=== PATIENT | male | born 1970 | race Caucasian/White ===

== ENCOUNTER 2022-08-20 07:51 | Day surgery (SDC) | payer BC, OTHER ==
[2022-08-13 10:39] VITALS: BMI 36.1
[2022-08-20] MEDS ORDERED: EPINEPHrine 1:1,000 1,000 MCG/ML ML ONE (08:37)
[2022-08-20] MEDS ORDERED: BUPIVACAINE HCL/PF 2.5 MG/ML - 30 ML VIAL IJ ONE (08:37)
[2022-08-20] MEDS ORDERED: ceFAZolin SODIUM 1 GM VIAL ONE (09:32)
[2022-08-20] MEDS ORDERED: PROPOFOL 20 ML ONE ×2 (09:34)
[2022-08-20] MEDS ORDERED: ONDANSETRON 4 MG/2 ML VIAL IVPUSH PRN (10:33)
[2022-08-20] MEDS ORDERED: oxyCODONE HCL 5 MG TABLET PO PRN (10:33)
[2022-08-20] MEDS ORDERED: PROMETHAZINE HCL 25 MG/1 ML VIAL IVPB PRN (10:33)
[2022-08-20 12:09] VITALS: RESP 20; TEMP 97.9
[2022-08-20 12:37] VITALS: BP 104/67; PULSE 72
== END 2022-08-20 12:39 | disposition home or self-care (01) ==
LOC: FASU 07:51
PROVIDERS: ATTEND Orthopaedic Surgery
PROC: 0SBC4ZZ Excision of Right Knee Joint, Percutaneous Endoscopic Approach (ICD-10-PCS; 2022-08-20)
PROC: 0SBC4ZZ Excision of Right Knee Joint, Percutaneous Endoscopic Approach (ICD-10-PCS; principal; 2022-08-20 10:03)
DX: S83.281A Other tear of lateral meniscus, current injury, right knee, initial encounter (principal); S83.241A Other tear of medial meniscus, current injury, right knee, initial encounter; S83.8X1A Sprain of other specified parts of right knee, initial encounter; M65.861 Other synovitis and tenosynovitis, right lower leg; Y92.9 Unspecified place or not applicable; Y93.9 Activity, unspecified
CPT/HCPCS: 94760